=== PATIENT | female | born 1935 | race Caucasian/White ===

== ENCOUNTER 2023-12-08 08:05 | Inpatient (IN) | payer OTHER ==
[~2023-12-08] VITALS: Ht 162.6 cm; Wt 69.9 kg
[2023-12-08 08:05] VITALS: BP_SYST 181; PULSE 81; RESP 20; TEMP 98.3; O2SAT 98
[2023-12-08 08:59] LABS: BASOPHILS % (AUTO) 0.4 % (0.0-2.0); EOSINOPHILS # (AUTO) 0.1 K/uL (0.0-0.4); EOSINOPHILS % (AUTO) 0.8 % (0.0-4.0); HEMATOCRIT 35.8 % (36-48); LYMPHOCYTES # (AUTO) 4.2 K/uL (1.0-5.5); LYMPHOCYTES % (AUTO) 37.5 % (20.5-51.5); MEAN CORPUSCULAR HEMOGLOBIN 25 pg (27-31); MEAN CORPUSCULAR HGB CONC 31 % (32-36); MEAN CORPUSCULAR VOLUME 82 fL (79.0-98.0); MONOCYTES # (AUTO) 0.6 K/uL (0.0-1.0); MONOCYTES % (AUTO) 5.6 % (1.7-9.3); NEUTROPHILS # (AUTO) 6.3 K/uL (1.8-7.7); NEUTROPHILS % (AUTO) 55.7 % (40.0-70.0); PLATELET COUNT (AUTO) 265 K/uL (130-430); RED BLOOD CELL COUNT(AUTO) 4.35 MIL/uL (4.2-6.2); RED CELL DISTRIBUTION WIDTH 19.5 % (9.0-15.0); WHITE BLOOD COUNT (AUTO) 11.2 K/uL (4.8-10.8)
[2023-12-08 09:25] LABS: ANION GAP 5 (5-15); CALCIUM 8.9 mg/dL (8.4-11.0); CARBON DIOXIDE 29 mmol/L (23-29); CHLORIDE 104 mmol/L (98-107); CREATININE 0.85 mg/dL (0.55-1.30); GLUCOSE 122 mg/dL (74-106); POTASSIUM 4.3 mmol/L (3.5-5.1); SODIUM SERUM 138 mmol/L (136-145); UREA NITROGEN, BLOOD 18 mg/dL (8-21)
[2023-12-08 09:31] LABS: PROTHROMBIN TIME 10.7 SECS (9.5-12.5)
[2023-12-08 10:59] LABS: CHOLESTEROL 136 mg/dL (<200); HDL CHOLESTEROL 39 mg/dL (>55); TRIGLYCERIDES 98 mg/dL (30-150)
[2023-12-08] MEDS ORDERED: IRBE150T48 PO (12:14)
[2023-12-08] MEDS ORDERED: METO-304 PO (12:14)
[2023-12-08 12:50] LABS: INFLUENZA TYPE A Negative (NEGATIVE); INFLUENZA TYPE B NEGATIVE (NEGATIVE)
[2023-12-08] MEDS: ASPIRIN 81 MG TABLET(ECOTRIN) PO ONE (13:19)
[2023-12-08 16:00] VITALS: BP_SYST 169; PULSE 89; RESP 17; TEMP 98.7; O2SAT 98
[2023-12-08 16:56] VITALS: BP_SYST 169; PULSE 89; RESP 18; TEMP 97.2; O2SAT 98
[2023-12-08 19:55] VITALS: BP_SYST 145; PULSE 95; RESP 16; TEMP 97.9; O2SAT 96
[2023-12-08 20:00] VITALS: BP_SYST 145; PULSE 96; RESP 16; TEMP 97.9; O2SAT 96; O2SAT 97
[2023-12-08] MEDS: CLOPIDOGREL BISULFATE 75 MG TABLET PO SCH (21:00)
[2023-12-08] MEDS: CLOPIDOGREL BISULFATE 75 MG TABLET PO ONE (23:03)
[2023-12-09] VITALS: BP_SYST 159; PULSE 92; PULSE 97; RESP 16; TEMP 97.3; O2SAT 97
[2023-12-09 08:00] VITALS: BP_SYST 154; BP_SYST 172; PULSE 86; RESP 19; TEMP 98; TEMP 99; O2SAT 96
[2023-12-09] MEDS: LOSARTAN POTASSIUM 50 MG TABLET (COZAAR) PO ONE (11:48)
[2023-12-09] MEDS: ASPIRIN 81 MG TABLET(ECOTRIN) PO ONE (11:49)
[2023-12-09 11:55] VITALS: BP_SYST 172; PULSE 90; RESP 16; TEMP 97.6; O2SAT 95
[2023-12-09 15:01] LABS: CHOLESTEROL 146 mg/dL (<200); HDL CHOLESTEROL 42 mg/dL (>55); TRIGLYCERIDES 44 mg/dL (30-150)
[2023-12-09 15:57] VITALS: BP_SYST 137; PULSE 91; RESP 18; TEMP 98.7; O2SAT 95
[2023-12-09 19:00] VITALS: O2SAT 94
[2023-12-09 20:00] VITALS: BP_SYST 140; PULSE 65; RESP 18; TEMP 99.5; O2SAT 94
[2023-12-09] MEDS ORDERED: METOPROLOL SUCCINATE 25 MG TAB.SR.24H (TOPROL XL) PO SCH (21:00)
[2023-12-09] MEDS: DONEPEZIL HCL 5 MG TABLET (ARICEPT) PO SCH (22:19)
[2023-12-09] MEDS: IBUPROFEN 400 MG TABLET PO PRN (22:20)
[2023-12-09] MEDS: METOPROLOL SUCCINATE 25 MG TAB.SR.24H (TOPROL XL) PO SCH (22:22)
[2023-12-10 00:43] VITALS: BP_SYST 140; PULSE 96; RESP 14; TEMP 97.1; O2SAT 96
[2023-12-10] MEDS ORDERED: ACETAMINOPHEN 325 MG TABLET PO PRN ×2 (01:45)
[2023-12-10 07:40] VITALS: BP_SYST 152; PULSE 77; RESP 16; TEMP 98; O2SAT 98
[2023-12-10 08:13] LABS: ANION GAP 6 (5-15); CALCIUM 8.6 mg/dL (8.4-11.0); CARBON DIOXIDE 28 mmol/L (23-29); CHLORIDE 106 mmol/L (98-107); CREATININE 0.88 mg/dL (0.55-1.30); GLUCOSE 117 mg/dL (74-106); SODIUM SERUM 140 mmol/L (136-145); UREA NITROGEN, BLOOD 13 mg/dL (8-21)
[2023-12-10 08:26] LABS: BASOPHILS % (AUTO) 0.4 % (0.0-2.0); EOSINOPHILS # (AUTO) 0.2 K/uL (0.0-0.4); EOSINOPHILS % (AUTO) 1.9 % (0.0-4.0); HEMATOCRIT 34.1 % (36-48); HEMOGLOBIN 10.8 g/dL (12.0-16.0); LYMPHOCYTES # (AUTO) 2.7 K/uL (1.0-5.5); LYMPHOCYTES % (AUTO) 26.4 % (20.5-51.5); MEAN CORPUSCULAR HEMOGLOBIN 27 pg (27-31); MEAN CORPUSCULAR HGB CONC 32 % (32-36); MONOCYTES # (AUTO) 0.9 K/uL (0.0-1.0); MONOCYTES % (AUTO) 8.4 % (1.7-9.3); NEUTROPHILS # (AUTO) 6.4 K/uL (1.8-7.7); NEUTROPHILS % (AUTO) 62.9 % (40.0-70.0); PLATELET COUNT (AUTO) 255 K/uL (130-430); RED BLOOD CELL COUNT(AUTO) 4.06 MIL/uL (4.2-6.2); RED CELL DISTRIBUTION WIDTH 19.7 % (9.0-15.0); WHITE BLOOD COUNT (AUTO) 10.2 K/uL (4.8-10.8)
[2023-12-10 09:09] LABS: MEAN CORPUSCULAR VOLUME 84 fL (79.0-98.0)
[2023-12-10 10:30] VITALS: O2SAT 98
[2023-12-10] MEDS: ASPIRIN 81 MG TABLET(ECOTRIN) PO SCH (11:24)
[2023-12-10] MEDS: LOSARTAN POTASSIUM 50 MG TABLET (COZAAR) PO SCH (11:28)
[2023-12-10 13:35] VITALS: BP_SYST 142; PULSE 80; RESP 17; TEMP 98.3; O2SAT 99
[2023-12-10] MEDS: traMADol HCL HCL 50 MG TABLET (ULTRAM) PO PRN (14:56)
[2023-12-10 16:02] VITALS: BP_SYST 141; PULSE 79; RESP 18; TEMP 98.5; O2SAT 96
[2023-12-10 23:17] VITALS: BP_SYST 139; PULSE 82; RESP 18; TEMP 98.3; O2SAT 97
[2023-12-11 00:38] VITALS: BP_SYST 148; PULSE 85; RESP 14; TEMP 97.6
[2023-12-11 04:33] LABS: BASOPHILS # (AUTO) 0.1 K/uL (0.0-0.2); BASOPHILS % (AUTO) 0.4 % (0.0-2.0); EOSINOPHILS # (AUTO) 0.1 K/uL (0.0-0.4); HEMATOCRIT 34.9 % (36-48); HEMOGLOBIN 10.9 g/dL (12.0-16.0); LYMPHOCYTES # (AUTO) 2.5 K/uL (1.0-5.5); LYMPHOCYTES % (AUTO) 19.5 % (20.5-51.5); MEAN CORPUSCULAR HEMOGLOBIN 26 pg (27-31); MEAN CORPUSCULAR HGB CONC 31 % (32-36); MEAN CORPUSCULAR VOLUME 83 fL (79.0-98.0); MONOCYTES # (AUTO) 0.8 K/uL (0.0-1.0); NEUTROPHILS # (AUTO) 9.4 K/uL (1.8-7.7); NEUTROPHILS % (AUTO) 73.1 % (40.0-70.0); PLATELET COUNT (AUTO) 296 K/uL (130-430); RED CELL DISTRIBUTION WIDTH 19.1 % (9.0-15.0); WHITE BLOOD COUNT (AUTO) 12.8 K/uL (4.8-10.8)
[2023-12-11 04:42] LABS: ANION GAP 3 (5-15); CALCIUM 8.8 mg/dL (8.4-11.0); CARBON DIOXIDE 30 mmol/L (23-29); CHLORIDE 102 mmol/L (98-107); CREATININE 0.81 mg/dL (0.55-1.30); GLUCOSE 126 mg/dL (74-106); POTASSIUM 4.6 mmol/L (3.5-5.1); SODIUM SERUM 135 mmol/L (136-145); UREA NITROGEN, BLOOD 13 mg/dL (8-21)
[2023-12-11 08:00] VITALS: O2SAT 97
[2023-12-11 08:25] VITALS: BP_SYST 132; PULSE 75; RESP 14; TEMP 97.3; O2SAT 97
[2023-12-11] MEDS ORDERED: DONE5TAB33 PO (11:03)
[2023-12-11] MEDS ORDERED: CLOP75TA32 PO (11:03)
[2023-12-11] MEDS ORDERED: Aspirin Ec PO (11:03)
[2023-12-11] MEDS ORDERED: BLOO-1360 XX (11:07)
[2023-12-11 11:14] VITALS: BP_SYST 128; PULSE 82; RESP 16; TEMP 98.6; O2SAT 96
[2023-12-11 14:26] VITALS: BP_SYST 128; PULSE 82; RESP 16; TEMP 98.6; O2SAT 96
== END 2023-12-11 15:28 | disposition home health service (06) | DRG 65 ==
LOC: SED 08:05 → SMU 11:56
PROVIDERS: ADMIT Specialist; ATTEND Specialist
DX: I63.9 Cerebral infarction, unspecified (principal); J98.11 Atelectasis; I65.21 Occlusion and stenosis of right carotid artery; R29.712 NIHSS score 12; I10 Essential (primary) hypertension; E66.01 Morbid (severe) obesity due to excess calories; I65.22 Occlusion and stenosis of left carotid artery; F03.90 Unspecified dementia, unspecified severity, without behavioral disturbance, psychotic disturbance, mood disturbance, and anxiety; Z20.822 Contact with and (suspected) exposure to COVID-19; I25.10 Atherosclerotic heart disease of native coronary artery without angina pectoris; Z79.899 Other long term (current) drug therapy; Z95.1 Presence of aortocoronary bypass graft; Z68.26 Body mass index [BMI] 26.0-26.9, adult
CPT/HCPCS: 36415; 70450; 70496; 70498; 70551; 71045; 80048; 80061; 83037; 83090; 84484; 85025; 85610; 85730; 86886; 86900; 86901; 92610-GN; 93005; 93306; 95816; 97116-GP; 97163-GP; 99285